=== PATIENT | male | born 1995 | race African-American/Black ===

== ENCOUNTER 2018-06-11 16:35 | Emergency (ER) | payer SELFPAY ==
[~2018-06-11 16:35] MED LIST: Sterile Water Irrigation 250 ML BOT ONE
== END 2018-06-11 17:25 | disposition home or self-care (01) ==
LOC: MADERS 16:35
DX: S00.83XA Contusion of other part of head, initial encounter (principal); V43.52XA Car driver injured in collision with other type car in traffic accident, initial encounter
CPT/HCPCS: 99283

== ENCOUNTER 2020-05-20 03:21 | Emergency (ER) | payer SELFPAY ==
[2020-05-20 03:49] LABS: #Basophils 0.1 thou/uL (0.0-0.2); #Lymphocytes 2.6 thou/uL (1.20-3.40); #Monocytes 0.5 thou/uL (0.11-0.59); #Neutrophils 2.2 thou/uL (1.40-6.50); %Basophils 1.3 % (0.0-1.0); %Eosinophils 0.6 % (0.0-10.0); %Lymphocytes 48.6 % (21.0-51.0); %Monocytes 9.8 % (0.0-10.0); %Neutrophils 39.8 % (42.0-75.0); Mean Corpuscular HGB CONC 33.1 g/dL (32.0-36.0); Mean Corpuscular Hemoglobin 29.3 pg (27.0-31.0); Mean Corpuscular Volume 88.4 fL (78.0-98.0); Mean Platelet Volume 6.3 fL (7.4-10.4); Platelet Count 268 thou/uL (130-400); RBC Distribution Width 11.3 % (11.5-14.5); Red Blood Cell (RBC) Count 4.77 mill/uL (4.70-6.10); White Blood Cell (WBC) Count 5.4 thou/uL (4.8-10.8)
[2020-05-20] MEDS ORDERED: Aspirin 325 MG TAB ONE (04:04)
[2020-05-20] MEDS ORDERED: predniSONE 20 MG TAB ONE (04:04)
[2020-05-20 04:12] LABS: ALT (SGPT) 12 U/L (8-55); AST (SGOT) 14 U/L (5-34); Albumin 4.3 g/dL (3.5-5.0); Alkaline Phosphatase 53 U/L (40-110); Anion Gap 15 mmol/L (10-20); BUN (Urea Nitrogen) 10 mg/dL (8.9-20.6); Bilirubin, Total 0.4 mg/dL (0.2-1.2); Calc. Creatinine Clearance 0 mL/min (70-130); Calcium 8.7 mg/dL (7.8-10.44); Carbon Dioxide 22 mmol/L (22-29); Chloride 105 mmol/L (98-107); Globulin 2.5 g/dL (2.4-3.5); Glucose 121 mg/dL (70-105); Potassium 3.5 mmol/L (3.5-5.1); Protein, Total 6.8 g/dL (6.0-8.3); Sodium 138 mmol/L (136-145)
[2020-05-20 04:18] LABS: Bilirubin Negative (Negative); Blood, Urine Negative (Negative); Clarity Clear (Clear); Glucose, Urine (Dipstick) Negative (Negative); Ketone, Urine Negative (Negative); Leukocyte Negative (Negative); Nitrite Negative (Negative); Protein, Urine (Dipstick) Negative (Neg-Trace); Urobilinogen 0.2 mg/dL (Less than 2); pH, Urine 6.5 (5.0-9.0)
[2020-05-20 04:32] LABS: Amphetamine Not Detected (NotDetected); Barbiturates Screen Not Detected (NotDetected); Benzodiazepine Screen Not Detected (NotDetected); Cocaine Metabolite Screen Not Detected (NotDetected); Medtox Control Line Valid? VALID (VALID); Methadone Not Detected (NotDetected); Methamphetamine Not Detected (NotDetected); Opiate Screen Not Detected (NotDetected); Oxycodone Screen Not Detected (NotDetected); Phencyclidine (PCP) Not Detected (NotDetected); THC/Cannabinoid Screen Detected (NotDetected); Tricyclic Screen Not Detected (NotDetected)
--- NOTE | 2020-05-20 08:16 | RAD ---
RADIOGRAPH CHEST 1 VIEW: DATE: 05/20/2020 3:49 AM HISTORY: 24-year-old male with chest pain FINDINGS: There is no airspace density, pulmonary edema, or pneumothorax. The lateral costophrenic angles are n ot effaced. IMPRESSION: No acute pulmonary findings.
== END 2020-05-20 04:42 | disposition home or self-care (01) ==
LOC: MADERS 03:21
DX: F41.0 Panic disorder [episodic paroxysmal anxiety] (principal); R07.89 Other chest pain
CPT/HCPCS: 71045; 80053; 80306; 81003; 84484; 85025; 93005; 94760; J7512

== ENCOUNTER 2022-05-07 20:27 | Emergency (ER) | payer SELFPAY | END 2022-05-07 21:24 | disposition left against medical advice (07) | LOC: MADERS 20:27 | DX: Z53.21 Procedure and treatment not carried out due to patient leaving prior to being seen by health care provider (principal) ==

== ENCOUNTER 2022-12-24 12:26 | Emergency (ER) | payer SELFPAY ==
[2022-12-24] MEDS ORDERED: Acetaminophen 325 MG TAB ONE (13:51)
[2022-12-24] MEDS ORDERED: Boostrix 0.5 ML (Tdap) VIAL (>/=7 yrs of age) ONE (13:51)
[2022-12-24] MEDS ORDERED: HYDROcodone/Acetaminophen 5/325 mg Tablet ONE (13:51)
== END 2022-12-24 14:20 | disposition home or self-care (01) ==
LOC: MADERS 12:26
DX: S60.122A Contusion of left index finger with damage to nail, initial encounter (principal); W23.0XXA Caught, crushed, jammed, or pinched between moving objects, initial encounter; Z23 Encounter for immunization
CPT/HCPCS: 11740; 90471; 90715

== ENCOUNTER 2023-09-09 09:12 | Emergency (ER) | payer SELFPAY | END 2023-09-09 09:54 | disposition home or self-care (01) | LOC: MADERS 09:12 | DX: B34.9 Viral infection, unspecified (principal); J06.9 Acute upper respiratory infection, unspecified | CPT/HCPCS: 99283 ==

== ENCOUNTER 2023-10-13 06:40 | Emergency (ER) | payer SELFPAY ==
[2023-10-13] MEDS ORDERED: Ondansetron ODT 4 MG TAB ONE (06:58)
== END 2023-10-13 08:15 | disposition home or self-care (01) ==
LOC: MADERS 06:40
DX: K52.9 Noninfective gastroenteritis and colitis, unspecified (principal)
CPT/HCPCS: 99283; Q0162

== ENCOUNTER 2023-11-01 10:37 | Emergency (ER) | payer SELFPAY ==
[2023-11-01] MEDS ORDERED: Ibuprofen 800 MG TAB ONE (11:22)
== END 2023-11-01 12:15 | disposition home or self-care (01) ==
LOC: MADERS 10:37
DX: S62.512A Displaced fracture of proximal phalanx of left thumb, initial encounter for closed fracture (principal); Y93.67 Activity, basketball
CPT/HCPCS: 29125

== ENCOUNTER 2023-11-19 22:07 | Emergency (ER) | payer SELFPAY | END 2023-11-20 00:59 | disposition home or self-care (01) | LOC: MADERS 22:07 | DX: S62.512A Displaced fracture of proximal phalanx of left thumb, initial encounter for closed fracture (principal); R41.82 Altered mental status, unspecified; X58.XXXA Exposure to other specified factors, initial encounter | CPT/HCPCS: 29125 ==

== ENCOUNTER 2024-01-27 04:05 | Emergency (ER) | payer SELFPAY ==
[2024-01-27 17:06] LABS: SARS-CoV-2 N1 Negative; SARS-CoV-2 N2 Negative; SARS-CoV-2 RNAse P1 Positive; SARS-CoV-2 RNAse P2 Positive
== END 2024-01-27 05:00 | disposition home or self-care (01) ==
LOC: MADERS 04:05
DX: J06.9 Acute upper respiratory infection, unspecified (principal)
CPT/HCPCS: 87635; 99283

== ENCOUNTER 2024-05-18 13:46 | Emergency (ER) | payer SELFPAY ==
[2024-05-18 14:21] LABS: Bilirubin Negative (Negative); Blood, Urine Negative (Negative); Clarity Clear (Clear); Glucose, Urine (Dipstick) Negative (Negative); Ketone, Urine Negative (Negative); Leukocyte Negative (Negative); Nitrite Negative (Negative); Protein, Urine (Dipstick) Negative (Neg-Trace); Urobilinogen 0.2 mg/dL (Less than 2); pH, Urine 5.5 (5.0-9.0)
[2024-05-18 14:26] LABS: Bacteria/HPF Rare-Few HPF (None Seen); CAUTI Indications for Culture Pelvic or flank pain; RBC/HPF 0-3 HPF (0-3); Squamous Epithelial 0-3 HPF (0-3); Urine Culture Reflex No No; WBC/HPF 0-3 HPF (0-3)
[2024-05-19 12:18] LABS: Chlam.trachomatis by PCR,Urine Not Detected (NotDetected); GC N.gonorrhoeae PCR,UrineVOID Not Detected (NotDetected)
== END 2024-05-18 14:45 | disposition home or self-care (01) ==
LOC: MADERS 13:46
DX: R10.9 Unspecified abdominal pain (principal)
CPT/HCPCS: 74176; 81001; 87491; 87591

== ENCOUNTER 2024-09-01 20:54 | Emergency (ER) | payer SELFPAY ==
[2024-09-01] MEDS ORDERED: Dicyclomine 10 MG CAP ONE (21:36)
[2024-09-01] MEDS ORDERED: Ibuprofen 800 MG TAB ONE (21:36)
[2024-09-01] MEDS ORDERED: Ondansetron ODT 4 MG TAB ONE (21:36)
== END 2024-09-01 22:25 | disposition home or self-care (01) ==
LOC: MADERS 20:54
DX: K21.9 Gastro-esophageal reflux disease without esophagitis (principal); F17.210 Nicotine dependence, cigarettes, uncomplicated
CPT/HCPCS: 99283; Q0162